=== PATIENT | female | born 1960 | race Caucasian/White ===

== ENCOUNTER → 2025-02-10 13:55 | Outpatient (REF) | payer MEDICARE, SELFPAY | LOC: WDC 13:55 | PROVIDERS: ATTENDING PHYSICIAN Nurse Practitioner Family; FAMILY PHYSICIAN Nurse Practitioner Adult Health | DX: Z12.31 Encounter for screening mammogram for malignant neoplasm of breast (principal) | CPT/HCPCS: 77063; 77067 ==

== ENCOUNTER → 2025-02-17 08:16 | Outpatient (REF) | payer MEDICARE, SELFPAY | LOC: WDC 08:16 | PROVIDERS: ATTENDING PHYSICIAN Nurse Practitioner Family; FAMILY PHYSICIAN Nurse Practitioner Adult Health | DX: R92.8 Other abnormal and inconclusive findings on diagnostic imaging of breast (principal) | CPT/HCPCS: 76642 ==